=== PATIENT | male | born 1950 | race Caucasian/White ===

== ENCOUNTER 2017-02-05 00:31 | Emergency (ER) | payer OTHER ==
[~2017-02-05] VITALS: Ht 177.8 cm; Wt 94.1 kg
[~2017-02-05 00:31] MED LIST: ATOR40TA16 PO; BENA25TA3 PO; CART120C PO; CLOP75TA PO; ECASA81 PO; EPIP0.3I IM; FISH300C2 PO; LISI10TA3 PO; NITR1SUB3 SL; TAB-TAB PO
[2017-02-05 00:37] VITALS: BP 188/90; PULSE 96; RESP 20; TEMP 98.4; O2SAT 97
[2017-02-05 00:50] VITALS: BP 162/82; PULSE 89; RESP 20; TEMP 98.6; O2SAT 96
[2017-02-05] MEDS ORDERED: OMEGCAP PO (01:18)
[2017-02-05] MEDS ORDERED: CENTCHW4 CHEW (01:18)
--- NOTE | 2017-02-05 01:25 | PD ---
HPI Chief Complaint: Cold / Flu Symptoms Time Seen by Provider: 01:18 Travel History International Travel<30 days: No Contact w/Intl Traveler<30days: No Traveled to known affect area: No History of Present Illness HPI 66-year-old male presents to the emergency department for complaint of cough congestion fever or myalgias arthralgias and intermittent shortness of breath with wheezing since Sunday. Patient states he does not have a history of bronchitis or COPD. Patient states she has not smoked cigarettes times one years. Patient does have history of CAD with previous CABG and stent placement and AICD pacemaker. Patient states that today he had some chills and cough productive of yellow sputum. Patient states he has not had the flu vaccine for this year. Patient denies any chest pain. Patient's had no referred neck jaw back shoulder arm or abdominal pain. Patient has noted some shortness of breath with his cough. Patient denies any lower extremity pain or swelling and has had no orthopnea or PND. PFSH Past Medical History Narrative Medical CAD IA CABG pacemaker defibrillator stent placement cardiac catheterization pneumonia hypertension dyslipidemia,: Appendectomy left eye surgery; nursing notes reviewed Hx Anticoagulant Therapy: Yes Arthritis: Yes (MINOR IN HANDS) Blood Disorders: No Heart Rhythm Problems: No Cancer: No High Cholesterol: Yes Chest Pain: No Congestive Heart Failure: No Diabetes: No Diminished Hearing: No Endocrine: No Gastrointestinal Disorders: No Glaucoma: No Genitourinary: No Hepatitis: No Hiatal Hernia: No Hypertension: Yes Immune Disorder: No Implanted Vascular Access Dvce: Yes Musculoskeletal: Yes Neurologic: No Psychiatric: No Reproductive: No Respiratory: Yes (SOB WHEN ALLERGIC REACTION) Integumentary: No Immunizations Current: Yes Myocardial Infarction: Yes Pneumonia: Yes (CHILDHOOD) Thyroid Disease: No Past Surgical History Abdominal Surgery: Yes (APPENDECTOMY) AICD: Yes (2005, 2012) Appendectomy: Yes () Body Medical Devices: PACEMAKER Cardiac Surgery: Yes (CABG X 5 IN 07/2005) Coronary Artery Bypass Graft: Yes (QUAD 08/08/05) Eye Surgery: Yes (11 YEARS OLD & LEFT CATARACT REMOVED) Pacemaker: Yes (ST CHANTELL DEFIBRILLATOR ALSO) Thoracic Surgery: Yes Other Surgery: Yes (APPENDECTOMY CABG PACEMAKER TIMES TWO) Social History Alcohol Use: Yes (OCCASIONAL) Tobacco Use: No (quit 2015) Substance Use: No Allergies-Medications (Allergen,Severity, Reaction): Coded Allergies: acebutolol (Unverified Allergy, Severe, 02/05/17) pt denies any medication allergies- 02/05/17 atenolol (Unverified Allergy, Severe, 02/05/17) pt denies any medication allergies- 02/05/17 betaxolol (Unverified Allergy, Severe, 02/05/17) pt denies any medication allergies- 02/05/17 carvedilol (Unverified Allergy, Severe, 02/05/17) pt denies any medication allergies- 02/05/17 labetalol (Unverified Allergy, Severe, 02/05/17) pt denies any medication allergies- 02/05/17 metoprolol (Unverified Allergy, Severe, 02/05/17) pt denies any medication allergies- 02/05/17 nebivolol (Unverified Allergy, Severe, 02/05/17) pt denies any medication allergies- 02/05/17 pindolol (Unverified Allergy, Severe, 02/05/17) pt denies any medication allergies- 02/05/17 propranolol (Unverified Allergy, Severe, 02/05/17) pt denies any medication allergies- 02/05/17 sotalol (Unverified Allergy, Severe, 02/05/17) pt denies any medication allergies- 02/05/17 timolol (Unverified Allergy, Severe, 02/05/17) pt denies any medication allergies- 02/05/17 Reported Meds & Prescriptions Reported Meds & Active Scripts Active Reported Centrum (Multiple Vitamins W/ Minerals) 1 Chew 1 Tab CHEW DAILY [place]-3 Fish Oil/Vitamin (Fish Oil-Cholecalciferol) 1,000-1,000 Mg Cap 1 Cap PO DAILY Nitroglycerin SL (Nitroglycerin) 0.4 Mg Subl 0.4 Mg SL DIRECTED PRN ONE TABLET UNDER THE TONGUE NEEDED FOR CHEST PAIN, MAY REPEAT EVERY FIVE MINUTES FOR A TOTAL OF 3 DOSES OR CALL 911 IF NO RELIEF Lisinopril 10 Mg Tab 10 Mg PO DAILY Epipen 2-Roberto Inj (Epinephrine) 0.3 Mg/0.3 Ml Pfpen 0.3 Mg IM ONCE PRN Clopidogrel (Clopidogrel Bisulfate) 75 Mg Tab 75 Mg PO DAILY Cartia Xt (Diltiazem ER 24 HR) 120 Mg Caper 120 Mg PO DAILY Atorvastatin (Atorvastatin Calcium) 40 Mg Tab 40 Mg PO DAILY Aspirin DR (Aspirin) 81 Mg Tabdr 81 Mg PO DAILY Review of Systems Except as stated in HPI: all other systems reviewed are Neg General / Constitutional: Positive: Fever, Chills HENT: Positive: Congestion Cardiovascular: No: Chest Pain or Discomfort Respiratory: Positive: Cough, Wheezing, No: Shortness of Breath Gastrointestinal: No: Nausea, Vomiting, Diarrhea, Abdominal Pain Genitourinary: No: Dysuria, Decreased Urinary Output Musculoskeletal: No: Myalgias, Arthralgias, Edema, Pain Skin: No Rash Neurologic: Positive: Weakness Psychiatric: No: Anxiety Hematologic/Lymphatic: No: Lymph Node Enlargement Physical Exam Narrative GENERAL: Well-developed well-nourished male in no acute distress no respiratory distress SKIN: Warm and dry. HEAD: Normocephalic. EYES: No scleral icterus. No injection or drainage. NECK: Supple, trachea midline. No JVD or lymphadenopathy. CARDIOVASCULAR: Regular rate and rhythm without murmurs, gallops, or rubs. RESPIRATORY: Breath sounds equal bilaterally with diffuse wheezing. No accessory muscle use. GASTROINTESTINAL: Abdomen soft, non-tender, nondistended. MUSCULOSKELETAL: No cyanosis, or edema. BACK: Nontender without obvious deformity. No CVA tenderness. Data Data Last Documented VS Vital Signs Date Time Temp Pulse Resp B/P (MAP) Pulse Ox O2 Delivery O2 Flow Rate FiO2 02/05/17 02:50 90 22 140/80 (100) 98 Room Air 02/05/17 02:34 2.00 02/05/17 00:50 98.6 Orders Orders Electrocardiogram (02/05/17:18) Complete Blood Count With Diff (02/05/17:18) Basic Metabolic Panel (Bmp) (02/05/17:18) Group A Rapid Strep Screen (02/05/17:18) Influenzae A/B Antigen (02/05/17:18) Chest, Single Ap (02/05/17:18) Ecg Monitoring (02/05/17:18) Iv Access Insert/Monitor (02/05/17:18) Oximetry (02/05/17:18) Ceftriaxone Inj (Rocephin Inj) (02/05/17 01:30) Sodium Chloride 0.9% Flush (Ns Flush) (02/05/17 01:30) Albuterol-Ipratropium Neb (Duoneb Neb) (02/05/17 01:30) Blood Culture (02/05/17 01:26) Lactic Acid (02/05/17 01:26) Troponin I (02/05/17 01:26) Strep Culture (Group A) (02/05/17 02:20) Azithromycin Inj (Zithromax Inj) (02/05/17 03:15) Furosemide (Lasix) (02/05/17 05:00) Labs Laboratory Tests Test 02/05/17 00:50 White Blood Count 5.5 TH/MM3 Red Blood Count 4.70 MIL/MM3 Hemoglobin 14.8 GM/DL Hematocrit 44.5 % Mean Corpuscular Volume 94.8 FL Mean Corpuscular Hemoglobin 31.6 PG Mean Corpuscular Hemoglobin Concent 33.4 % Red Cell Distribution Width 13.5 % Platelet Count 163 TH/MM3 Mean Platelet Volume 8.5 FL Neutrophils (%) (Auto) 71.4 % Lymphocytes (%) (Auto) 13.2 % Monocytes (%) (Auto) 12.3 % Eosinophils (%) (Auto) 2.3 % Basophils (%) (Auto) 0.8 % Neutrophils # (Auto) 4.0 TH/MM3 Lymphocytes # (Auto) 0.7 TH/MM3 Monocytes # (Auto) 0.7 TH/MM3 Eosinophils # (Auto) 0.1 TH/MM3 Basophils # (Auto) 0.0 TH/MM3 CBC Comment DIFF FINAL Differential Comment Blood Urea Nitrogen 17 MG/DL Creatinine 1.30 MG/DL Random Glucose 106 MG/DL Calcium Level 8.8 MG/DL Sodium Level 135 MEQ/L Potassium Level 4.1 MEQ/L Chloride Level 101 MEQ/L Carbon Dioxide Level 26.7 MEQ/L Anion Gap 7 MEQ/L Estimat Glomerular Filtration Rate 55 ML/MIN Lactic Acid Level 1.8 mmol/L Troponin I LESS THAN 0.02 NG/ML MDM Medical Decision Making Medical Screen Exam Complete: Yes Emergency Medical Condition: Yes Medical Record Reviewed: Yes Interpretation(s) Influenza A/B antigen: Negative; rapid strep antigen: Negative Last Impressions Chest X-Ray 02/05/17 0118 Signed Impressions: Service Date/Time: Sunday, February 05, 2017 01:28 - CONCLUSION: 1. Cardiomegaly and findings of vascular congestion without overt failure. Remy Greene MD CBC & BMP Diagram 02/05/17 00:50 Calcium Level 8.8 Vital Signs Date Time Temp Pulse Resp B/P (MAP) Pulse Ox O2 Delivery O2 Flow Rate FiO2 02/05/17 02:50 90 22 140/80 (100) 98 Room Air 02/05/17 02:34 96 2.00 02/05/17 00:50 98.6 89 20 162/82 (108) 96 02/05/17 00:37 98.4 96 20 188/90 (122) 97 Troponin I: Less than 0.02, not elevated Lactic acid 1.8, not elevated Differential Diagnosis Fever, bronchitis, pneumonia, sinusitis, influenza, atypical chest pain, ACS, IA , CHF Narrative Course patient placed on threat monitoring analyst IV access obtained specimens collected and sent for resulting EKG ordered along with cardiac enzymes as well as blood cultures and lactic acid Patient administered DuoNeb updraft Patient given IV antibiotics after blood cultures obtained EKG no acute injury pattern normal sinus rhythm rate 84 age-indeterminate inferior infarct no acute ST elevation or injury pattern CBC is automated differential total white cell count is normal range for patient does have mild elevation of neutrophil percentage 71% Lactic acid is 1.8, not elevated Cardiac enzymes are found to be in normal range Lung sounds clear without wheezing after updraft treatment and patient's saturation improved; patient feels clinically improved; patient administered IV antibiotic for a suspicious infiltrate noted on x-ray Diagnosis Primary Impression: Pneumonia Qualified Codes: J18.1 - Lobar pneumonia, unspecified organism Referrals: Primary Care Physician 2 days Patient Instructions: General Instructions Additional Instructions: Follow-up with primary care provider 2 days No work 2 days Complete course of antibiotic as prescribed Complete course of steroid as prescribed Use albuterol inhaler 1-2 puffs every 4-6 hours as needed for wheezing or shortness of breath Return to the emergency department for any worsening or change in condition Take acetaminophen/Tylenol every 4 hours as needed for fever 100.4F or greater or may use ibuprofen 600 mg as often as every 6 hours for fever 100.4F or greater Continue chronic medications as chronically prescribed Med/Other Pt SpecificInfo: Prescription(s) given Scripts Albuterol 18 GM Inh (Ventolin Hfa 18 GM Inh) 90 Mcg/Act Aer 1-2 PUFF INH Q4-6H Y for SHORTNESS OF BREATH, #1 INHALER 0 Refills Prov: Minna Cordero MD 02/05/17 Azithromycin (Zithromax Z-Roberto) 250 Mg Dspk 250 MG PO DIRECTED for Infection, #1 DSPK 0 Refills 500 MG (2 tabs) day 1, then 1 tab days 2-5. Prov: Minna Cordero MD 02/05/17 Methylprednisolone Dosepak (Medrol Dosepak) 4 Mg Dspk 4 MG PO DIRECTED, #1 DSPK 0 Refills Per Pharmacist direction Prov: Minna Cordero MD 02/05/17 Disposition: 01 DISCHARGE HOME Condition: Stable Minna Cordero MD Feb 05, 2017 01:25
[2017-02-05] MEDS ORDERED: SODIUM CHLORIDE 0.9% FLUSH 10 ML FLUSH IVF PRN (01:30)
[2017-02-05] MEDS ORDERED: RESP: ALBUTEROL 2.5 MG/IPRATROPIUM 0.5 MG NEB (SCH) NEB ONE (01:30)
[2017-02-05] MEDS ORDERED: cefTRIAXone INJ 1,000 MG in SODIUM CHLORIDE 0.9% INJ 100 ML IV ONE ×2 (01:30→03:15)
--- NOTE | 2017-02-05 01:50 | RADRPT ---
EXAM DATE/TIME: 02/05/2017 01:28 [facility] COMPARISON: No previous studies available for comparison. INDICATIONS : Shortness of breath. MEDICAL HISTORY : Hypertension. Coronary artery disease. SURGICAL HISTORY : Pacemaker. CABG. ENCOUNTER: Initial ACUITY: 3 days PAIN SCORE: 0/10 LOCATION: Bilateral chest FINDINGS: The cardiac silhouette is normal in transverse diameter. Median sternotomy wires are present. A defib rillator device is in place via a left sided approach. There is prominence of the central pulmonary v asculature with indistinct vascular margins compatible with vascular congestion but no evidence of ov ert failure. No pleural effusions are identified. CONCLUSION: 1. Cardiomegaly and findings of vascular congestion without overt failure. Remy Greene MD on February 05, 2017 at 1:48 Board Certified Radiologist. This report was verified electronically.
[2017-02-05 02:34] VITALS: O2SAT 96
[2017-02-05 02:41] LABS: BASOPHIL % 0.8 % (0.0-2.0); EOSINOPHIL # 0.1 TH/MM3 (0-0.4); EOSINOPHIL % 2.3 % (0.0-4.0); HEMATOCRIT 44.5 % (39.0-51.0); HEMO FLAGS DIFF FINAL; LYMPH % 13.2 % (9.0-44.0); LYMPHOCYTE # 0.7 TH/MM3 (1.0-4.8); MEAN CELL VOLUME 94.8 FL (80.0-100.0); MEAN CORPUSCULAR HEMOGLOBIN 31.6 PG (27.0-34.0); MEAN CORPUSCULAR HGB CONC 33.4 % (32.0-36.0); MONO % 12.3 % (0.0-8.0); NEUT % 71.4 % (16.0-70.0); PLATELET COUNT 163 TH/MM3 (150-450); RED CELL DISTRIBUTION WIDTH 13.5 % (11.6-17.2); WHITE BLOOD COUNT 5.5 TH/MM3 (4.0-11.0)
[2017-02-05 02:50] VITALS: BP 140/80; PULSE 90; RESP 22; O2SAT 98
[2017-02-05 02:54] LABS: POTASSIUM 4.1 MEQ/L (3.5-5.1)
[2017-02-05 02:57] LABS: BICARBONATE 26.7 MEQ/L (21.0-32.0)
[2017-02-05] MEDS ORDERED: AZITHROMYCIN INJ 500 MG in SODIUM CHLOR 0.9% 250 ML INJ 250 ML IV ONE (03:15)
[2017-02-05] MEDS ORDERED: ZITHTAB PO (04:52)
[2017-02-05] MEDS ORDERED: VENTAER INH (04:52)
[2017-02-05] MEDS ORDERED: MEDR4PAK PO (04:52)
[2017-02-05] MEDS ORDERED: FUROSEMIDE 40 MG TAB PO ONE (05:00)
[2017-02-05 05:22] VITALS: BP 138/84
--- NOTE | 2017-02-05 08:17 | EKG ---
Date Performed: 02/05/2017 Time Performed: 01:26:40 PTAGE: 66 years EKG: Sinus rhythm POSSIBLE LEFT ATRIAL ENLARGEMENT POSSIBLE INFERIOR MYOCARDIAL INFARCTION NONSPECIFIC T WAVE ABNORMAL ITY BORDERLINE ECG PREVIOUS TRACING : 02/22/2016 10.36 No significant change from previous tracing noted. DOCTOR: Karl Laboy Interpretating Date/Time 02/05/2017 08:15:36
== END 2017-02-05 05:23 | disposition home or self-care (01) ==
LOC: PHED 00:31
DX: J18.1 Lobar pneumonia, unspecified organism (principal); I21.9 Acute myocardial infarction, unspecified; I25.10 Atherosclerotic heart disease of native coronary artery without angina pectoris; I10 Essential (primary) hypertension; E78.00 Pure hypercholesterolemia, unspecified; R94.31 Abnormal electrocardiogram [ECG] [EKG]; Z95.810 Presence of automatic (implantable) cardiac defibrillator; Z95.0 Presence of cardiac pacemaker; Z95.5 Presence of coronary angioplasty implant and graft; Z79.82 Long term (current) use of aspirin; Z79.899 Other long term (current) drug therapy
CPT/HCPCS: 71010; 80048; 83605; 84484; 85025; 87040; 87081; 87804; 87880; 93005; 94664; 96365; 96367; 99285; J0456; J0696; J7050